=== PATIENT | female | born 1975 | race Caucasian/White ===

== ENCOUNTER → 2016-10-10 | Outpatient (CLI) | payer BC ==
[~2016-10-10] MED LIST: ALPR.5T PO; CLIN-62 PO; CLIN150C17 PO; CLIN300C3 PO; CYCL10TA9 PO; DESV100T PO; HYDR1CAP2 PO; HYDR1TAB PO; IBP800T PO; NAPR-243 PO; SULF1TAB35 PO; TRM50T; TRM50T PO
--- OUTSIDE RECORDS SUMMARY | 2016-10-10 08:57 | XMS REPORT ---
Author ABDIEL Mas [facility] eClinicalWorks Address Unknown Phone Unavailable Care Team Providers Care Commodity Lead Name Role Phone ABDIEL ARITA CP Unavailable Allergies, Adverse Reactions, Alerts Substance Reaction Event Type Penicillamine Info Not Available Drug Allergy Problems Problem Type Condition Code Onset Dates Condition Status Problem Asthma, unspecified, unspecified status 493.90 Active Assessment Bronchitis J40 Active Problem Bipolar I disorder, most recent episode (or current) mixed, moderate 296.62 Active Problem Posttraumatic stress disorder 309.81 Active Problem Mild intermittent asthma without complication J45.20 Active Problem Unspecified episodic mood disorder 296.90 Active Problem Acute pharyngitis 462 Active Problem Attention deficit disorder of childhood without mention of hyperactivity 314.00 Active Problem Panic disorder without agoraphobia 300.01 Active Medications Medication Code System Code Instructions Start Date End Date Status Dosage Albuterol Sulfate [facility] [address]-66 90 mcg/actuation every 4-6 hours as needed Jul 29, 2013 inhale 2 puffs by inhalation route every 6 hours PRN cough or wheezing Symbicort [facility] [address]-24 80-4.5 mcg/actuation Inhalation 2 times a day Aug 13, 2013 inhale 2 puffs by inhalation route 2 times per day in the morning and evening Diflucan [facility] [address]-85 150 MG Orally Once a day Aug 17, 2016 Aug 18, 2016 1 tablet PredniSONE [facility] [address]-72 20 mg Orally Once a day Aug 17, 2016 Aug 22, 2016 2 tablets Xanax [facility] [address]-42 1 MG Orally 2 times a day PRN anxiety Oct 09, 2014 1 tablet Promethazine-Codeine [facility] [address]-60 6.25-10 MG/5ML Orally every 6 hrs Aug 17, 2016 5 ml as needed Guaifenesin [facility] [address]-75 400 MG Orally every 4 hrs Aug 17, 2016 1 tablet as needed Zithromax Z-Ruslan [facility] [address]-50 250 MG Orally Once a day Aug 17, 2016 Aug 22, 2016 2 tablets on the first day, then 1 tablet daily for 4 days Procedures Procedure Coding System Code Date Office Visit, Est Pt., Level 3 CPT-4 56448 Aug 17, 2016 Vital Signs Date/Time: Aug 17, 2016 Cardiac Monitoring Heart Rate 78 bpm Weight 251.4 lbs Height 65.5 in BMI 41.19 Index Blood Pressure Diastolic 74 mmHg Blood Pressure Systolic 128 mmHg Results No Known Results Summary Purpose eClinicalWorks Submission
--- NOTE | 2016-10-10 20:19 | Diagnostic Imaging Report ---
Bilateral diagnostic mammogram. INDICATION: Breast tenderness. The current study was also evaluated with a Computer Aided Detection (CAD) system. No prior studies are available for comparison. This is a baseline study. FINDINGS: There is a lobulated nodule in the upper outer aspect of the right breast measuring about 1.2 CM in length. The is evaluated with focal compression views and demonstrate persistence. No spiculated margins. No suspicious calcifications. The left breast demonstrates no significant abnormality. IMPRESSION: Lobulated 1.2 cm ill-defined lesion is seen persistent on focal compression view in favor of benign etiology. Ultrasound evaluation pending. ACR BI-RADS Category 0: Incomplete. (Needs additional imaging evaluation). Result letter will be mailed to the patient. Note: At least 10% of breast cancer is not imaged by mammography. Dictated by: Dictated on workstation # [id number]
--- NOTE | 2016-10-10 20:24 | Diagnostic Imaging Report ---
EXAM: Right breast ultrasound. TECHNIQUE: All four quadrants and the retroareolar region were examined on this study. INDICATION: Bilateral breast pain and focal asymmetry in the right breast. FINDINGS: Unremarkable breast parenchyma is seen with no mass identified in the breast tissue on both sides. There is however, in the right axilla, 2 benign-appearing lymph nodes up to 2 cm x 1 cm x 0.9 cm and 1.3 cm with the appearance of preserved fatty hilum suggestive of benign etiology. IMPRESSION: Negative study. Clinical followup for patient complaints and a 6 month right breast mammogram followup for focal asymmetry seen, likely benign, is recommended. BI-RADS 3. ACR BI-RADS Category 3: Probably benign findings. Result letter will be mailed to the patient. Note: At least 10% of breast cancer is not imaged by mammography. Dictated by: Dictated on workstation # [id number]
== END ==
LOC: RAD 08:52
PROVIDERS: ATTEND Nurse Practitioner Family
DX: R92.8 Other abnormal and inconclusive findings on diagnostic imaging of breast (principal)

== ENCOUNTER 2022-09-28 13:41 | Emergency (ER) | payer OTHER ==
[~2022-09-28] VITALS: Ht 165 cm; Wt 113.4 kg
[~2022-09-28 13:41] MED LIST changes: +ALB0.5V IH; +BUDE10.2 IH; -CLIN150C17 PO; +CLIN150C20 PO; -SULF1TAB35 PO; +SULF1TAB38 PO
--- NOTE | 2022-09-28 14:18 | ED Cough/URI ---
General Chief Complaint: Cough/Cold/Flu Symptoms Stated Complaint: FEVER | COUGH | Nursing Triage Note: PT AMB TO ED BY POV WITH C/O FEVER, MILLS, COUGH. 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 COUGH AND DIARRHEA SINCE LAST NIGHT. Source: patient Exam Limitations: no limitations History of Present Illness Date Seen by Provider: Sep 28, 2022 Time Seen by Provider: 13:55 Initial Comments 47-year-old female presents today with flulike symptoms. Reports fever of 103.8 at home, patient took ibuprofen before coming to the ER. Complains of body ach es, sinus drainage, cough, headache, reports 2-3 small episodes of diarrhea today, reports some lower abdominal cramping. Patient denies any known sick contacts. Denies chest pain, shortness of breath, nausea/vomiting. Patient states she is postmenopausal. Patient has a past medical history of elevated cholesterol and asthma. Patient states that sometimes when she has viral il lnesses she has asthma exacerbations but not every time. Timing/Duration: this morning Severity/Quality: moderate Associated Symptoms: denies symptoms Allergies and Home Medications Allergies Coded Allergies: Penicillins (Unverified Allergy, Mild, 01/19/09) Patient Home Medication List Home Medication List Reviewed: Yes Albuterol Sulfate (Albuterol Sulfate) 2.5 Mg/0.5 Ml Vial.neb, 2.5 MG IH Q4H PRN for SHORTNESS OF BREATH, (Reported) Entered as Reported by: DOMINIQUE BERNARD on 05/23/18 1445 Alprazolam (Xanax) 0.5 Mg Tablet, 1 MG PO PRN PRN for ANXIETY, (Reported) Entered as Reported by: FERMIN PRATT on 01/19/09 0750 Budesonide/Formoterol Fumarate (Symbicort 160-4.5 Mcg Inhaler) 10.2 Gm Hfa.aer.ad, 2 PUFF IH BID, (Reported) Entered as Reported by: DOMINIQUE BERNARD on 05/23/18 1530 Review of Systems Review of Systems Constitutional: chills, fever, other (body aches) Respiratory: cough; No short of breath Cardiovascular: no symptoms reported Gastrointestinal: abdominal pain (lower abdominal cramping) Psychiatric/Neurological: Headache Past Bmjozzn-Yaqzey-Jdffcc Hx Patient Social History Tobacco Use?: Yes Tobacco type used: Cigarettes Smoking Status: Current Everyday Smoker Use of E-Cig and/or Vaping dev: No Substance use?: No Alcohol Use?: No Pt feels they are or have been: No Immunizations Up To Date Tetanus Booster (TDap): Less than 5yrs Influenza Vaccine Up-to-Date: No; Not Current Seasonal Allergies Seasonal Allergies: No Past Medical History Surgery/Hospitalization HX: ASTHMA, HIGH CHOLESTEROL Surgeries: No Respiratory: Yes Asthma Cardiac: No Neurological: No Reproductive Disorders: No Gastrointestinal: No Musculoskeletal: No Endocrine: No Cancer: No Psychosocial: Yes Anxiety Integumentary: No Blood Disorders: No Physical Exam Vital Signs - First Documented 09/28/22 13:52 Temp 37.7 Pulse 88 Resp 18 B/P (MAP) 143/79 (100) Pulse Ox 95 O2 Delivery Room Air Capillary Refill : Less Than 3 Seconds Height: 5'5.00" Weight: 250lbs. oz. 113.439547sh; 41.00 BMI Method:Stated General Appearance: WD/WN, mild distress Neck: supple, normal inspection Respiratory: chest non-tender, lungs clear, normal breath sounds, no respiratory distress, no accessory muscle use Cardiovascular: regular rate, rhythm, no edema, no gallop, no JVD, no murmur Gastrointestinal: normal bowel sounds Extremities: normal range of motion, normal inspection Neurologic/Psychiatric: alert, normal mood/affect, oriented x 3 Skin: normal color, warm/dry Progress/Results/Core Measures Suspected Sepsis SIRS Temperature: Pulse: 88 Respiratory Rate: 18 Blood Pressure 143 /79 Mean: 100 Results/Orders Lab Results Laboratory Tests Test 09/28/22 13:54 Range/Units Influenza Type A (RT-PCR) Detected H Not Detecte Influenza Type B (RT-PCR) Not Detected Not Detecte SARS-CoV-2 RNA (RT-PCR) Not Detected Not Detecte My Orders Orders - JASON MADRIGAL APRN Covid 19 Inhouse Test (09/28/22 13:54) Influenza A And B By Pcr (09/28/22 13:54) Vital Signs/I&O 09/28/22 13:52 Temp 37.7 Pulse 88 Resp 18 B/P (MAP) 143/79 (100) Pulse Ox 95 O2 Delivery Room Air Capillary Refill : Less Than 3 Seconds Blood Pressure Mean: 100 Progress Note #1: Time: 14:18 Progress Note Patient seen evaluated. Swabs obtained for flu and COVID. Discussed with patient this is likely flu due to that going around. Discussed taking Tylenol ibuprofen alternating every 4 hours for pain discomfort, increasing water intake and decreasing caffeinated drinks. Offered Tylenol for headache since patient took ibuprofen at home. Patient states she will just take Tylenol when she gets home. Progress Note #2: Time: 14:27 Progress Note Discussed test result with patient. Discussed increasing fluid intake and alternate Tylenol ibuprofen for is for pain discomfort, discussed taking [id number]-[id number] cough syrup for cough. Patient declined prescription for Tessalon Perles. Patient given return precautions. Departure Impression Primary Impression: Influenza Disposition: 01 HOME, SELF-CARE Condition: Stable Departure-Patient Inst. Decision time for Depature: 14:30 Referrals: [facility] [place] Primary Care Physician Patient Instructions: Flu, Adult (DC) Add. Discharge Instructions: Increase your water intake. Decrease caffeinated beverage intake and high sugar beverages. Alternate Tylenol and ibuprofen as needed for pain and fever. Take dnku-ssd-qounhoe cough syrup as needed. Follow-up with primary care provider. Monitor for increased shortness of breath and wheezing, may need prescription for prednisone if having an asthma exacerbation. Return for any new or concerning symptoms, increased shortness of breath, wheezing. All discharge instructions reviewed with patient and/or family. Voiced understanding. JAOSN MADRIGAL APRN Sep 28, 2022 14:18
[2022-09-28 14:40] VITALS: BP 143/79
== END 2022-09-28 14:40 | disposition home or self-care (01) ==
LOC: EDUNIT# 13:41 → ER 13:43
DX: J10.1 Influenza due to other identified influenza virus with other respiratory manifestations (principal); F17.210 Nicotine dependence, cigarettes, uncomplicated; Z28.310 Unvaccinated for COVID-19; Z20.822 Contact with and (suspected) exposure to COVID-19
CPT/HCPCS: 87636; 99283

== ENCOUNTER 2023-04-15 15:08 | Emergency (ER) | payer OTHER ==
[~2023-04-15] VITALS: Ht 165.1 cm; Wt 113.4 kg
[2023-04-15 15:14] VITALS: BP 137/81
--- NOTE | 2023-04-15 15:20 | ED Upper Extremity ---
General Stated Complaint: INJ LEFT RING FINGER Source: patient Exam Limitations: no limitations History of Present Illness Date Seen by Provider: Apr 15, 2023 Time Seen by Provider: 15:17 Initial Comments 47-year-old female presents for cut to her left ring finger. She was cutting vegetables with a kitchen knife just prior to arrival. Tetanus shot in the last 5 years. All other systems reviewed and negative except documented per HPI. Voice recognition software was used to help create this chart Allergies and Home Medications Allergies Coded Allergies: Penicillins (Unverified Allergy, Mild, 01/19/09) Patient Home Medication List Home Medication List Reviewed: Yes Albuterol Sulfate (Albuterol Sulfate) 2.5 Mg/0.5 Ml Vial.neb, 2.5 MG IH Q4H PRN for SHORTNESS OF BREATH, (Reported) Entered as Reported by: DOMINIQUE BERNARD on 05/23/18 1445 Alprazolam (Xanax) 0.5 Mg Tablet, 1 MG PO PRN PRN for ANXIETY, (Reported) Entered as Reported by: FERMIN PRATT on 01/19/09 0750 Budesonide/Formoterol Fumarate (Symbicort 160-4.5 Mcg Inhaler) 10.2 Gm Hfa.aer.ad, 2 PUFF IH BID, (Reported) Entered as Reported by: DOMINIQUE BERNARD on 05/23/18 1530 Review of Systems Constitutional: see HPI Past Taklgkr-Gprvhu-Prhtzv Hx Patient Social History Tobacco Use?: No Use of E-Cig and/or Vaping dev: No Substance use?: No Alcohol Use?: No Immunizations Up To Date Tetanus Booster (TDap): Less than 5yrs Seasonal Allergies Seasonal Allergies: No Past Medical History Surgery/Hospitalization HX: ASTHMA, HIGH CHOLESTEROL Surgeries: No Respiratory: Yes Asthma Cardiac: No Neurological: No Reproductive Disorders: No Gastrointestinal: No Musculoskeletal: No Endocrine: No Cancer: No Psychosocial: Yes Anxiety Integumentary: No Blood Disorders: No Physical Exam Vital Signs Vital Signs - First Documented 04/15/23 15:14 Temp 37.2 Pulse 82 Resp 20 B/P (MAP) 137/81 (99) Pulse Ox 98 Capillary Refill : Height, Weight, BMI Height: 5'5.00" Weight: 250lbs. oz. 113.042762xj; 41.00 BMI Method:Stated General Appearance: WD/WN, no apparent distress Skin: other (Small curvilinear laceration to the distal left ring finger. Does not include the nail. Neurovascular sensory intact. Superficial,) Progress/Results/Core Measures Results/Orders My Orders Orders - NIMA NICHOLE DO Hand, Left, 3 Views (04/15/23 15:12) Vital Signs/I&O 04/15/23 15:14 Temp 37.2 Pulse 82 Resp 20 B/P (MAP) 137/81 (99) Pulse Ox 98 Departure Communication (Admissions) Patient is hemodynamically stable. Laceration superficial, no indication for stitches. X-rays negative. Discharged in stable condition. Tetanus was up-to-date. Impression Primary Impression: Laceration of left index finger Qualified Codes: S61.211A - Laceration without foreign body of left index finger without damage to nail, initial encounter Disposition: HOME, SELF-CARE Condition: Stable Departure-Patient Inst. Referrals: [facility] (PCP/Family) Primary Care Physician Patient Instructions: Wound Care ED Add. Discharge Instructions: Keep the area covered when you are using it. Will likely heal on its own within 5 to 7 days. Return to the emergency department for any severe concerns NIMA NICHOLE DO Apr 15, 2023 15:20
--- NOTE | 2023-04-15 15:44 | Diagnostic Imaging Report ---
CLINICAL INDICATION: Patient with little finger injury. Patient reports cutting vegetables at approximately 1445 hours today and slipped and sliced the tip of her left little finger. EXAM: X-ray of the left 4th finger, 3 views. COMPARISON: None. FINDINGS AND IMPRESSION: There is no acute fracture or dislocation. There is no soft tissue radiodense foreign object. There is no significant soft tissue abnormality seen on this exam. Dictated by: Dictated on workstation # [id number]
== END 2023-04-15 15:47 | disposition home or self-care (01) ==
LOC: EDUNIT# 15:08 → ER 15:10
DX: S61.215A Laceration without foreign body of left ring finger without damage to nail, initial encounter (principal); Z28.310 Unvaccinated for COVID-19; W26.0XXA Contact with knife, initial encounter; Y93.89 Activity, other specified
CPT/HCPCS: 73130; 99282